=== PATIENT | female | born 1945 | race Two or more races ===

== ENCOUNTER 2024-04-05 19:25 | Inpatient (IN) | payer MEDICARE, OTHER ==
[~2024-04-05] VITALS: Ht 157.5 cm; Wt 60.7 kg
[2024-04-05 20:41] LABS: BASOPHILS % (AUTO) 0.3 % (0.0-2.0); EOSINOPHILS % (AUTO) 0.1 % (0.0-7.0); HEMATOCRIT 37.6 % (31.2-41.9); HEMOGLOBIN 12.3 g/dL (10.9-14.3); LYMPHOCYTES # (AUTO) 0.9 K/uL (0.8-4.8); LYMPHOCYTES % (AUTO) 6.7 % (20.5-51.5); MEAN CORPUSCULAR HEMOGLOBIN 31.3 uug (24.7-32.8); MEAN CORPUSCULAR HGB CONC 33 g/dL (32.3-35.6); MEAN CORPUSCULAR VOLUME 95.6 fL (75.5-95.3); MONOCYTES # (AUTO) 0.7 K/uL (0.1-1.30); NEUTROPHILS # (AUTO) 11.4 K/uL (1.8-8.9); NEUTROPHILS % (AUTO) 87.9 % (38.5-71.5); PLATELET COUNT (AUTO) 140 K/uL (179-408); RED BLOOD CELL COUNT(AUTO) 3.93 MIL/uL (3.63-4.92); RED CELL DISTRIBUTION WIDTH 15.4 % (12.3-17.7)
[2024-04-05] MEDS ORDERED: METOPROLOL TARTRATE 5 MG/5 ML VIAL IVP ONE ×2 (20:47→21:45)
[2024-04-05 20:50] LABS: DIFFERENTIAL COMMENT 1
[2024-04-05] MEDS: METOPROLOL TARTRATE 5 MG/5 ML VIAL IVP ONE (20:53)
[2024-04-05 20:54] LABS: CALCIUM 7.9 mg/dL (8.5-10.1); CARBON DIOXIDE 24 mmol/L (21-32); CHLORIDE 104 mmol/L (98-107); CREATININE 2.3 mg/dL (0.6-1.3); GLUCOSE 331 mg/dL (74-106); POTASSIUM 5.3 mmol/L (3.5-5.1); SODIUM SERUM 140 mmol/L (136-145); UREA NITROGEN, BLOOD 29 mg/dL (7-18)
[2024-04-05 21:12] LABS: ALANINE AMINOTRANSFERASE 13 U/L (14-59); ALBUMIN 2.7 g/dL (3.4-5.0); ALKALINE PHOSPHATASE 184 U/L (50-136); ASPARTATE AMINOTRANSFERASE 35 U/L (15-37); BILIRUBIN,TOTAL 1.2 mg/dL (0.2-1.0); NT-PRO BNP 333833 pg/mL (0-125); PHOSPHOROUS 2.8 mg/dL (2.5-4.9); TOTAL PROTEIN, SERUM 7.4 g/dL (6.4-8.2)
[2024-04-05] MEDS: IV NORMAL SALINE 250 ML IV ONE (21:20)
[2024-04-05 21:25] LABS: THYROID STIMULATING HORMONE 98.218 mIU/mL (0.358-3.740)
[2024-04-05] MEDS ORDERED: DILTIAZEM HCL 50 MG IV ONE (22:05)
[2024-04-05] MEDS: DILTIAZEM HCL IV 125 MG in IV NORMAL SALINE 100 ML IV PRN (22:30)
[2024-04-05] MEDS ORDERED: INSULIN REGULAR, HUMAN 300 UNITS/3 ML VIAL SQ PRN (22:45)
[2024-04-05] MEDS ORDERED: DEXTROSE 50% 50 ML DISP.SYRIN IV PRN (22:45)
[2024-04-05] MEDS ORDERED: hydrALAZINE HCL 20 MG/1 ML VIAL IV PRN (22:45)
[2024-04-05] MEDS: BLOOD SUGAR DIAGNOSTIC 1 EACH STRIP VI SCH (23:51)
[2024-04-05] MEDS: INSULIN GLARGINE,HUM 300 UNITS/3 ML CARTRIDGE SQ SCH (23:56)
[2024-04-06] VITALS (7 sets, daily range): BP systolic 92–137; BP diastolic 47–67; TEMP 97.2–98.3; O2SAT 94–98
[2024-04-06] MEDS: ONDANSETRON 4 MG/2 ML VIAL IV PRN (02:25)
[2024-04-06] MEDS: MORPHINE SULFATE 2 MG/1 ML DISP.SYRIN IVP PRN (02:25)
[2024-04-06 07:33] LABS: BASOPHILS # (AUTO) 0.1 K/UL (0.0-0.2); BASOPHILS % (AUTO) 0.7 % (0.0-2.0); EOSINOPHILS % (AUTO) 0.3 % (0.0-7.0); HEMATOCRIT 35.1 % (31.2-41.9); HEMOGLOBIN 11.5 g/dL (10.9-14.3); LYMPHOCYTES # (AUTO) 1.5 K/uL (0.8-4.8); LYMPHOCYTES % (AUTO) 16.2 % (20.5-51.5); MEAN CORPUSCULAR HEMOGLOBIN 31.6 uug (24.7-32.8); MEAN CORPUSCULAR HGB CONC 33 g/dL (32.3-35.6); MEAN CORPUSCULAR VOLUME 96.3 fL (75.5-95.3); MONOCYTES # (AUTO) 0.8 K/uL (0.1-1.30); MONOCYTES % (AUTO) 8.3 % (0.0-11.0); NEUTROPHILS % (AUTO) 74.5 % (38.5-71.5); PLATELET COUNT (AUTO) 143 K/uL (179-408); RED BLOOD CELL COUNT(AUTO) 3.64 MIL/uL (3.63-4.92); RED CELL DISTRIBUTION WIDTH 15.5 % (12.3-17.7); WHITE BLOOD COUNT (AUTO) 9.3 K/uL (3.8-11.8)
[2024-04-06 07:39] LABS: DIFFERENTIAL COMMENT 1
[2024-04-06] MEDS: INSULIN REGULAR, HUMAN 1000 UNIT/10 ML VIAL SQ PRN (07:52)
[2024-04-06] MEDS: MIDODRINE HCL 5 MG TABLET PO SCH (09:05)
[2024-04-06] MEDS: APIXABAN 2.5 MG TABLET PO SCH (09:06)
[2024-04-06 10:36] LABS: ALANINE AMINOTRANSFERASE 14 U/L (14-59); ALBUMIN 2.3 g/dL (3.4-5.0); ALKALINE PHOSPHATASE 130 U/L (50-136); ASPARTATE AMINOTRANSFERASE 27 U/L (15-37); CALCIUM 7.5 mg/dL (8.5-10.1); CARBON DIOXIDE 27 mmol/L (21-32); CHLORIDE 106 mmol/L (98-107); CREATININE 2.5 mg/dL (0.6-1.3); GLUCOSE 220 mg/dL (74-106); PHOSPHOROUS 3.1 mg/dL (2.5-4.9); POTASSIUM 4.7 mmol/L (3.5-5.1); SODIUM SERUM 140 mmol/L (136-145); TOTAL PROTEIN, SERUM 6.5 g/dL (6.4-8.2); UREA NITROGEN, BLOOD 32 mg/dL (7-18)
[2024-04-06] MEDS ORDERED: NITR0.4T48 SL (11:21)
[2024-04-06] MEDS ORDERED: FERR-56 PO (11:30)
[2024-04-06] MEDS ORDERED: DOCU250C14 PO (11:30)
[2024-04-06] MEDS ORDERED: LEVO150T8 PO (11:30)
[2024-04-06] MEDS ORDERED: ATOR40TA PO (11:30)
[2024-04-06] MEDS ORDERED: FOLI0.8T23 PO (11:30)
[2024-04-06] MEDS ORDERED: CARV3.122 PO (11:33)
[2024-04-06] MEDS ORDERED: ERGO500040 PO (11:33)
[2024-04-06] MEDS ORDERED: FOLI1TAB94 PO (11:33)
[2024-04-06] MEDS ORDERED: AMLO-212 PO (11:33)
[2024-04-06] MEDS: DILTIAZEM HCL 30 MG TABLET PO SCH (12:00)
[2024-04-06] MEDS: ACETAMINOPHEN 325 MG TABLET PO PRN (13:22)
[2024-04-06] MEDS: LEVOTHYROXINE SODIUM 100 MCG VIAL IV ONE (14:02)
[2024-04-07 00:56] VITALS: BP 99/41; TEMP 97.3; O2SAT 91
[2024-04-07 04:56] VITALS: BP 112/60; TEMP 97.3; O2SAT 93
[2024-04-07 08:25] LABS: BASOPHILS # (AUTO) 0.1 K/UL (0.0-0.2); EOSINOPHILS # (AUTO) 0.1 K/uL (0.0-0.7); HEMATOCRIT 37.8 % (31.2-41.9); HEMOGLOBIN 12.5 g/dL (10.9-14.3); LYMPHOCYTES # (AUTO) 1.3 K/uL (0.8-4.8); LYMPHOCYTES % (AUTO) 18.6 % (20.5-51.5); MEAN CORPUSCULAR HEMOGLOBIN 31.7 uug (24.7-32.8); MEAN CORPUSCULAR HGB CONC 33 g/dL (32.3-35.6); MONOCYTES # (AUTO) 0.5 K/uL (0.1-1.30); MONOCYTES % (AUTO) 6.3 % (0.0-11.0); NEUTROPHILS # (AUTO) 5.2 K/uL (1.8-8.9); NEUTROPHILS % (AUTO) 73.1 % (38.5-71.5); PLATELET COUNT (AUTO) 162 K/uL (179-408); RED BLOOD CELL COUNT(AUTO) 3.94 MIL/uL (3.63-4.92); RED CELL DISTRIBUTION WIDTH 15.5 % (12.3-17.7); WHITE BLOOD COUNT (AUTO) 7.1 K/uL (3.8-11.8)
[2024-04-07 08:47] LABS: DIFFERENTIAL COMMENT 1
[2024-04-07 09:14] LABS: IRON, SERUM 82 ug/dL (50-175)
[2024-04-07 09:31] LABS: ALANINE AMINOTRANSFERASE 15 U/L (14-59); ALBUMIN 2.3 g/dL (3.4-5.0); ALKALINE PHOSPHATASE 113 U/L (50-136); ASPARTATE AMINOTRANSFERASE 20 U/L (15-37); BILIRUBIN,TOTAL 1.1 mg/dL (0.2-1.0); CALCIUM 7.6 mg/dL (8.5-10.1); CARBON DIOXIDE 28 mmol/L (21-32); CHLORIDE 103 mmol/L (98-107); CHOLESTEROL 116 mg/dL (<200); CREATININE 2.3 mg/dL (0.6-1.3); GLUCOSE 52 mg/dL (74-106); HDL CHOLESTEROL 58 mg/dL (40-60); MAGNESIUM 1.9 mg/dL (1.8-2.4); PHOSPHOROUS 3.8 mg/dL (2.5-4.9); POTASSIUM 4.3 mmol/L (3.5-5.1); SODIUM SERUM 137 mmol/L (136-145); TOTAL PROTEIN, SERUM 6.7 g/dL (6.4-8.2); TRIGLYCERIDES 56 MG/DL (30-150); UREA NITROGEN, BLOOD 28 mg/dL (7-18)
[2024-04-07 10:13] LABS: THYROID STIMULATING HORMONE 78.689 mIU/mL (0.358-3.740)
[2024-04-07 11:33] VITALS: BP 108/67; TEMP 97.5; O2SAT 94
[2024-04-07] MEDS ORDERED: NITROGLYCERIN 0.4 MG/TAB BOTTLE SL PRN (14:00)
[2024-04-07 15:52] VITALS: BP 108/51; TEMP 97.5; O2SAT 96
[2024-04-07 21:14] VITALS: BP 103/53; TEMP 97.9; O2SAT 94
[2024-04-08] VITALS: BP 104/55; TEMP 97.4; O2SAT 92
[2024-04-08 04:08] LABS: HEPATITIS A AB, IgM Negative (Negative); HEPATITIS B SURFACE AB, QUAL Non Reactive (.); HEPATITIS Be ANTIGEN Negative (Negative)
[2024-04-08 04:59] VITALS: BP 116/56; TEMP 97.5; O2SAT 93
[2024-04-08] MEDS: LEVOTHYROXINE SODIUM 150 MCG TABLET PO SCH (06:44)
[2024-04-08 07:23] LABS: BASOPHILS # (AUTO) 0.1 K/UL (0.0-0.2); EOSINOPHILS # (AUTO) 0.1 K/uL (0.0-0.7); EOSINOPHILS % (AUTO) 1.7 % (0.0-7.0); HEMATOCRIT 37.6 % (31.2-41.9); HEMOGLOBIN 12.4 g/dL (10.9-14.3); LYMPHOCYTES # (AUTO) 0.8 K/uL (0.8-4.8); LYMPHOCYTES % (AUTO) 16.3 % (20.5-51.5); MEAN CORPUSCULAR HEMOGLOBIN 31.7 uug (24.7-32.8); MEAN CORPUSCULAR HGB CONC 33 g/dL (32.3-35.6); MEAN CORPUSCULAR VOLUME 95.8 fL (75.5-95.3); MONOCYTES # (AUTO) 0.4 K/uL (0.1-1.30); MONOCYTES % (AUTO) 7.6 % (0.0-11.0); NEUTROPHILS # (AUTO) 3.6 K/uL (1.8-8.9); NEUTROPHILS % (AUTO) 73.4 % (38.5-71.5); PLATELET COUNT (AUTO) 150 K/uL (179-408); RED BLOOD CELL COUNT(AUTO) 3.92 MIL/uL (3.63-4.92); RED CELL DISTRIBUTION WIDTH 15.4 % (12.3-17.7); WHITE BLOOD COUNT (AUTO) 4.9 K/uL (3.8-11.8)
[2024-04-08 07:40] LABS: CALCIUM 7.5 mg/dL (8.5-10.1); CARBON DIOXIDE 29 mmol/L (21-32); CHLORIDE 104 mmol/L (98-107); CREATININE 1.9 mg/dL (0.6-1.3); GLUCOSE 78 mg/dL (74-106); MAGNESIUM 1.9 mg/dL (1.8-2.4); PHOSPHOROUS 3.2 mg/dL (2.5-4.9); POTASSIUM 4.1 mmol/L (3.5-5.1); SODIUM SERUM 140 mmol/L (136-145); UREA NITROGEN, BLOOD 22 mg/dL (7-18)
[2024-04-08 07:41] VITALS: BP 120/55; TEMP 97.6; O2SAT 95
[2024-04-08 07:50] LABS: DIFFERENTIAL COMMENT 1
[2024-04-08] MEDS: DOCUSATE SODIUM 250 MG CAPSULE PO SCH (08:34)
[2024-04-08] MEDS: FOLIC ACID/VITAMIN B COMP W-C TABLET PO SCH (08:38)
[2024-04-08 11:39] VITALS: BP 130/47; TEMP 97.6; O2SAT 93
[2024-04-08] MEDS ORDERED: ATOR10TA PO (13:41)
[2024-04-08] MEDS ORDERED: APIX2.5T PO (13:41)
[2024-04-08] MEDS ORDERED: LEVO200T9 PO (13:41)
[2024-04-08] MEDS ORDERED: DAPA5TAB PO (13:42)
[2024-04-09 00:11] LABS: HEPATITIS B CORE AB, TOTAL Negative (Negative); HEPATITIS B SURFACE AB, QUAL Non Reactive (.); HEPATITIS B SURFACE AG Negative (Negative)
== END 2024-04-08 15:15 | disposition home or self-care (01) | DRG 308 ==
LOC: ER 19:25 → TELE-TD3 22:36 → TELE3 04-06 10:12
PROVIDERS: ADMIT Internal Medicine; ATTEND Internal Medicine
PROC: 5A1D70Z Performance of Urinary Filtration, Intermittent, Less than 6 Hours Per Day (ICD-10-PCS; principal; 2024-04-07)
DX: I48.0 Paroxysmal atrial fibrillation (principal); I50.23 Acute on chronic systolic (congestive) heart failure; N18.6 End stage renal disease; I13.2 Hypertensive heart and chronic kidney disease with heart failure and with stage 5 chronic kidney disease, or end stage renal disease; I31.39 Other pericardial effusion (noninflammatory); E44.0 Moderate protein-calorie malnutrition; E11.22 Type 2 diabetes mellitus with diabetic chronic kidney disease; Z99.2 Dependence on renal dialysis; E03.9 Hypothyroidism, unspecified; E11.40 Type 2 diabetes mellitus with diabetic neuropathy, unspecified; E11.65 Type 2 diabetes mellitus with hyperglycemia; D63.1 Anemia in chronic kidney disease; I44.4 Left anterior fascicular block; Z79.890 Hormone replacement therapy; R79.89 Other specified abnormal findings of blood chemistry; E87.5 Hyperkalemia; Z68.24 Body mass index [BMI] 24.0-24.9, adult; I42.9 Cardiomyopathy, unspecified; E78.5 Hyperlipidemia, unspecified; Z87.11 Personal history of peptic ulcer disease; Z90.49 Acquired absence of other specified parts of digestive tract; Z91.199 Patient's noncompliance with other medical treatment and regimen due to unspecified reason; I07.1 Rheumatic tricuspid insufficiency
CPT/HCPCS: 36415; 71045; 83550; 83735; 84100; 84443; 84481; 84484; 85025; 85730; 86704; 86706; 86709; 87340; 87350; 90937; 93307; A4606; A4663; G0378; J1815; J2270; J2405; J3490; J7040